=== PATIENT | male | born 1950 | race Caucasian/White ===

== ENCOUNTER 2017-08-12 12:38 | Emergency (ER) | payer MEDICARE, OTHER ==
[2017-08-12 12:48] VITALS: BP 161/89
[2017-08-12 13:22] LABS: Hematocrit 42.3 % (42.0-52.0); Hemoglobin 15.1 gm/dL (13.5-18.0); Mean Cell Volume 84.1 fl (78-100); Mean Corpuscular Hgb Conc 35.7 g/dl (32-36); Mean Platelet Volume 9.1 fl (6.0-9.5); Neutrophil % 75.8 % (42-75.0); Platelet Count 188 K/mm3 (150-450); Red Blood Count 5.03 M/mm3 (4.7-6.0); White Blood Count 6.6 K/mm3 (4.0-10.5)
[2017-08-12 13:30] LABS: Urine Appearance Clear; Urine Bacteria None Seen; Urine Bilirubin Negative (NEGATIVE); Urine Blood 10 /ul (NEGATIVE); Urine Color Yellow; Urine Ketone Negative (NEGATIVE); Urine Nitrite Negative (NEGATIVE); Urine Protein Negative (NEGATIVE); Urine RBC None Seen /hpf (0-5); Urine Specific Gravity <=1.005 SP.GR. (1.005-1.030); Urine Urobilinogen Normal (NORMAL); Urine WBC None Seen /hpf (0-5)
[2017-08-12 13:41] LABS: Albumin * 4.1 gm/dl (3.4-5.0); Anion Gap 14.2 mmol/L (6.8-13.8); BUN/Creatinine Ratio 11.7 (9.0-21.6); Bilirubin, Total 0.5 mg/dL (0.0-1.1); Ca. Corrected For Albumin 8.6 mg/dL (8.4-10.2); Carbon Dioxide 28.2 mmol/L (24-32.6); Potassium 3.4 mmol/L (3.4-4.6); Total Protein 7.7 gm/dL (6.2-8.2)
--- NOTE | 2017-08-12 13:59 | ERNOTE ---
Medical Problem HPI - Narrative Date of Service: 08/12/17 - General Chief Complaint: General Assessment Time Seen by Provider: 08/12/17 13:23 Source: patient Exam Limitations: no limitations - Patient presents for upper abdominal bloating. he relates he has been on a proton pump inhibitor for a year and he is concerned about his liver. He states he feels like his upper abdomen is bloated. No pain with this. No fever or vomiting. He relates he has not had any alcohol for nearly 2 years. Nothing seems to make this better or worse. He has been feeling this all week. No blood in stool, no CP or SOB. Nothing makes this better or worse. - Immun/Allergies/Home Medications Immunizations: IMMUNIZATION HX Immunizations Up to Date Yes History of Influenza Vaccine Yes Hx Pneumococcal Vaccination Yes Allergies/Adverse Reactions: Allergies hydrochlorothiazide [From Zestoretic] Adverse Reaction (Mild, Verified 05/03/16 08:50) DRY MOUTH, BAD TASTE lisinopril [From Zestoretic] Adverse Reaction (Mild, Verified 05/03/16 08:50) DRY MOUTH, BAD TASTE Home Medications: HOME MEDICATIONS amLODIPine BESYLATE [Norvasc] 10 mg PO DAILY 03/26/15 [Last Taken Unknown] Amitriptyline HCl [Elavil] 25 mg PO HS 05/02/16 [Last Taken Unknown] Omeprazole [Prilosec] 40 mg PO DAILY 05/02/16 [Last Taken Unknown] - History of Present History Timing: other - fluctuation, bit no pain Modifying Factors - (Improves): Present: other - nothing Modifying Factors - (Worsens): Present: other - nothing Review of Systems - Review of Systems Constitutional: Absent: fever ENT: Absent: sore throat Respiratory: Absent: shortness of breath Cardiology: Absent: chest pain Gastrointestinal/Abdominal: Present: See HPI. Absent: nausea, vomiting, constipation Genitourinary: Absent: dysuria Musculoskeletal: Present: other - chronic back pain/thoracic pain Skin: Absent: rash Neurological: Absent: weakness - Patient's Past Medical History Patient History - Medical: Chronic Pain, GERD Patient History - Cardiac/Respiratory: Hypertension Patient History - Cancer: No Hx of Cancer Patient History - Surgical Procedures: No surgical history Patient History - Other: None - Social History Living Situations: home Abuse History: No History of abuse Psych History: No pertinent hx Smoking Status: Former smoker Alcohol Use: sober Drug Use: none - Immunizations Immunizations Up to Date: Yes Hx Pneumococcal Vaccination: Yes History of Influenza Vaccine: Yes Physical Exam - Physical Exam General Appearance: Present: alert, no apparent distress Head Exam: Present: normal inspection, no evidence of injury Eye Exam: Normal inspection: bilateral, PERRL: bilateral Ears, Nose, Throat: Present: normal ENT inspection Neck: Present: normal inspection Respiratory: Present: no respiratory distress, no accessory muscle use, lungs clear Cardiovascular/Chest: Present: regular rate, rhythm, normal peripheral pulses, other - equal femoral pulses Gastrointestinal/Abdominal: Present: normal bowel sounds, nontender, nondistended, soft, no organomegaly. Absent: tenderness, abnormal bowel sounds , guarding, rebound, McBurney sign, hernia, hepatomegaly Back Exam: Present: normal range of motion Extremity Exam: Present: normal inspection Neurological Exam: Present: alert, normal mood/affect, no motor/sensory deficits Skin Exam: Present: normal color, warm/dry ED Progress - Results and Orders Patient's Lab Results:: I have reviewed the patient's lab results. - Vital Signs Patient's Vital Signs:: I have reviewed the patient's vital signs. Vital Signs: Vital Signs 08/12/17 08/12/17 12:42 12:48 Temperature 37.1 C 37.1 C Pulse Rate 89 89 Respiratory 17 17 Rate Blood Pressure 161/89 161/89 O2 Sat by Pulse 98 98 Oximetry - Progress/Reassessment Chief Complaint: General Assessment Progress Note-Subjective: 08/12/17 13:52 Nothing would suggest ACS or intra-thoracic etiology. I was going to obtain CT scan but he informed me he had one 1 year ago. I still offered him a repeat CT but he declines this. He understands risks and benefits. Declines CT. I discussed warning signs and reasons to return as well as the need for close f/u. Departure Clinical Impression: Abdominal bloating - Departure Disposition: Home self-care Condition: Stable Additional Instructions: Rest. Fluids. Follow-up with your primary doctor for a re-check within 3 days. Return if your change your mind about having the CT scan of your abdomen , develop fever, vomiting, pain or if your condition worsens or changes in any way. Referrals: Brett Whitehead, [Primary Care Provider] -
== END 2017-08-12 14:00 | disposition home or self-care (01) ==
LOC: ER 12:38
DX: R14.0 Abdominal distension (gaseous) (principal); G89.29 Other chronic pain; K21.9 Gastro-esophageal reflux disease without esophagitis; Z96.89 Presence of other specified functional implants; I10 Essential (primary) hypertension